=== PATIENT | male | born 1940 | race American Indian/Alaskan Native ===

== ENCOUNTER 2018-08-06 11:37 | Day surgery (SDC) | payer MEDICARE, OTHER ==
[2018-08-06] MEDS ORDERED: NACL 0.9% 1000 ML 1,000 ML ONE (13:10)
[2018-08-06 13:11] LABS: INR 1.17 (0.87-1.13)
[2018-08-06] MEDS ORDERED: ANCEF/STERILE WATER 2 GM/20 ML 2 GM/20 ML SYRINGE IV ONE (13:11)
[2018-08-06 13:12] LABS: Partial Thromboplastin Time 34.8 Sec. (24.2-36.6)
[2018-08-06] MEDS ORDERED: XYLOCAINE 2% UROJET ONE (13:16)
[2018-08-06] MEDS ORDERED: AMIDATE IV ONE (13:27)
[2018-08-06] MEDS ORDERED: ZOFRAN ONE (13:27)
[2018-08-06] MEDS ORDERED: DIPRIVAN 10 MG/ML IV ONE (13:28)
[2018-08-06] MEDS ORDERED: VERSED ONE (13:33)
[2018-08-06] MEDS ORDERED: WATER FOR IRRIG STERILE IR ONE (13:50)
--- NOTE | 2018-08-06 13:51 | Post Operative Note ---
Date of procedure: 08/06/18 Pre-op diagnosis: hematuria Post-op diagnosis: same Findings: large trilobar hypertrophy Procedure: cysto Anesthesia: GETA Surgeon: MERCY BELL Estimated blood loss: minimal Pathology: none Condition: stable Disposition: PACU
--- NOTE | 2018-08-06 13:55 | Discharge Summary ---
Short Stay Discharge Plan Activity: other (no straining ) Weight Bearing Status: Partial Weight Bearing Diet: low fat, low cholesterol, low salt Follow up with: ED PARSONS MD [Primary Care Provider] - 7 Days
[2018-08-06] MEDS ORDERED: NACL 0.9% 1000 ML 1,000 ML IV SCH (14:00)
[2018-08-06] MEDS ORDERED: ANCEF/STERILE WATER 2 GM/20 ML 2 GM/20 ML SYRINGE IV NR (14:00)
--- NOTE | 2018-08-06 14:31 | Consultation ---
History of Present Illness Consult date: 08/06/18 Requesting physician: MERCY BELL Consult reason: tachycardia History of present illness: The pt is a 77 YO male with a past medical history of restrictive cardiomyopathy, HF, cardiac amyloidosis, NSVT, AICD in situ, paroxysmal AFib/AFlutter, anticoagulated with Eliquis, severe TR, chronic RV heart failure, pulmonary HTN, DM. He is followed by [facility], Dr. Timmons. He presented today for scheduled elective cystoscopy and during the case, was noted to have a few bouts of tachycardia and thus case was aborted and cardiology consultation has been requested. Per anesthesia, his tachycardia appeared to be sinus tachycardia which lasted for approx 1 minute each bout. On evaluation, pt in NSR with no current cardiac complaints. Echo done 09/2017 showed normal LV size, mod LVH, EF 50-55%, grade 3 diastolic dysfunction c/w restrictive physiology, mod reduced RV systolic function, RA severely dilated, severe TR, RVSP 45-50, myocardial appearance suggestive of infiltrative CMP, pt with known h/o cardiac amyloid. LHC done 06/2011 showed normal coronaries. Past History Past Medical History: other (as per HPI) Medications and Allergies Allergies Allergy/AdvReac Type Severity Reaction Status Date / Time No Known Allergies Allergy Verified 07/25/18 13:46 Home Medications Medication Instructions Recorded Confirmed Last Taken Type Amiodarone HCl [Pacerone 400 MG 200 mg PO QDAY 07/25/18 08/06/18 08/05/18 09:00 History TAB] Apixaban [Eliquis] 5 mg PO BID 07/25/18 08/06/18 08/01/18 History Bimatoprost [Lumigan] 1 drop OP DAILY 07/25/18 08/06/18 08/05/18 18:00 History Brimonidine Tartrate/Timolol 1 drop OP DAILY 07/25/18 08/06/18 08/06/18 07:00 History [Combigan 0.2%-0.5% Eye Drops] Calcitriol [Rocaltrol] 0.25 mcg PO QDAY 07/25/18 08/06/18 08/05/18 18:00 History Ergocalciferol [Vitamin D2] 1 cap PO QWEEK 07/25/18 08/06/18 08/02/18 09:00 History Potassium Chloride [Klor-Con M20] 20 meq PO DAILY 07/25/18 08/06/18 08/05/18 09:00 History oxyCODONE /ACETAMINOPHEN [Percocet 1 tab PO Q6HR PRN 07/25/18 08/06/18 05/23/18 09:00 History 5/325] Active Meds: Active Medications Cefazolin Sodium (Ancef/Sterile Water 2 Gm/20 Ml) 2 gm in 20 mls @ 80 mls/hr IV PREOP NR; Protocol Stop: 08/06/18 20:00 Sodium Chloride (Nacl 0.9% 1000 Ml) 1,000 mls @ 42 mls/hr IV DIRECT ASIM Last Admin: 08/06/18 13:15 Dose: 42 mls/hr Documented by: Review of Systems All systems: negative (no current complaints) Physical Examination General appearance: no acute distress HEENT: Positive: PERRL, Normocephaly, Mucus Membranes Moist Neck: Positive: neck supple, trachea midline Cardiac: Positive: Reg Rate and Rhythm, S1/S2 Lungs: Positive: Decreased Breath Sounds Neuro: Positive: Grossly Intact Abdomen: Positive: Soft. Negative: Tender Skin: Negative: Rash, Wound Musculoskeletal: No Pain Extremities: Absent: edema Results Coagulation 08/06/18 Range/Units 12:50 PT 15.7 H (12.2-14.9) Sec. INR 1.17 H (0.87-1.13) APTT 34.8 (24.2-36.6) Sec. - Imaging and Cardiology Echo: report reviewed ( 09/2017 showed normal LV size, mod LVH, EF 50-55%, grade 3 diastolic dysfunction c/w restrictive physiology, mod reduced RV systolic function, RA severely dilated, severe TR, RVSP 45-50, myocardial appearance suggestive of infiltrative CMP, pt with known h/o cardiac amyloid. ) Cardiac cath: report reviewed (06/2011 showed normal coronaries. ) EKG: report reviewed, image reviewed EKG interpretations - Telemetry EKG Rhythm: Sinus Rhythm - EKG Sinus rhythms and dysrhythmias: sinus rhythm Assessment and Plan Pt presented today for scheduled elective cystoscopy and during the case, was noted to have a few bouts of tachycardia and thus case was aborted and c ardiology consultation has been requested. Per anesthesia, his tachycardia appeared to be sinus tachycardia which lasted for approx 1 minute each bout. On evaluation, pt in NSR with no current cardiac complaints. ECG shows SR with ectopic atrial rhythm. Currently stable cardiac status. Pt may discharge home from cardiology standpoint on home cardiac regimen. Recommend pt follow up with his primary research agricultural engineer, Dr. Timmons, within 1-2 weeks. The patient has been seen in conjunction with Dr. Caruso who agrees with the assessment and plan of care. - Patient Problems (1) Tachycardia Current Visit: Yes Status: Resolved (2) Cardiac amyloidosis Current Visit: Yes Status: Chronic (3) Restrictive cardiomyopathy Current Visit: Yes Status: Chronic (4) NSVT (nonsustained ventricular tachycardia) Current Visit: Yes Status: Chronic (5) Automatic implantable cardioverter-defibrillator in situ Current Visit: Yes Status: Chronic (6) Paroxysmal atrial fibrillation Current Visit: Yes Status: Chronic (7) Paroxysmal atrial flutter Current Visit: Yes Status: Chronic (8) Severe tricuspid regurgitation Current Visit: Yes Status: Chronic (9) Pulmonary HTN Current Visit: Yes Status: Chronic (10) Diabetes Current Visit: Yes Status: Chronic
--- NOTE | 2018-08-06 14:50 | XRay Report ---
AP ABDOMEN: HISTORY: Hematuria. The abdominal gas pattern is unremarkable. No masses or organomegaly is identified and there is no gross evidence of free air or fluid. No significant soft tissue calcifications are noted. IMPRESSION: Unremarkable abdomen.
--- NOTE | 2018-08-06 16:35 | Operative Report ---
PREOPERATIVE DIAGNOSIS: Hematuria. POSTOPERATIVE DIAGNOSIS: Trilobar hypertrophy with large middle lobe, 1-2+ trabeculated bladder. PROCEDURE: Cystoscopy. The rest of the procedure was terminated because of tachycardia. SURGEON: Yao Moore MD ANESTHESIA: MAC. FINDINGS: This is a gentleman with severe heart issues. We had clearance from the podiatrist orthopedic and could not have general, now presents for cystoscopy for hematuria. DESCRIPTION OF PROCEDURE: The patient was brought to the operating room and placed on the operating table. Following induction of anesthesia, placed in lithotomy position, prepped and draped in usual sterile fashion. He had some mild sedation. We used local gel. Cystoscopy showed a normal urethra up until the prostatic urethra. There were no irregularities. It looked as if there was previous procedure there and nodularity with a large middle lobe. We saw the trigone. We were going to do a retrograde, but we had to abandon it because he was tachycardic, so we took the scope out. We did not see any tumors. There was no active bleeding. A 22 Coude was placed, draining clear. The patient tolerated the procedure well. The plan will be per Cardiology. He may need a TURP if he continues to bleed, but he cannot have general anesthesia. He is too sick, so we will manage him with a catheter at this time. JOB# [id number] BEENA/ARUNA
--- NOTE | 2018-08-06 16:37 | Anesthesia Consultation ---
Anesthesia Consult and Med Hx - Airway Anesthetic Teeth Evaluation: Dentures ROM Head & Neck: Adequate Mental/Hyoid Distance: Adequate Mallampati Class: Class II Intubation Access Assessment: Good - Pulmonary Exam CTA: Yes - Cardiac Exam Cardiac Exam: RRR - Pre-Operative Health Status ASA Pre-Surgery Classification: ASA4 Proposed Anesthetic Plan: MAC (Cardiac eval on chart , pat) - Pulmonary Hx Smoking: Yes (STOPPED X 15 YRS) Hx Sleep Apnea: No (VLADIMIR PRE SCREEN LOW RISK.) - Cardiovascular System Hx Hypertension: No Hx Angina: No Hx Internal Defibrillator: Yes Hx Peripheral Vascular Disease: Yes (UNSURE-C/O LEG PAIN AND SWELLING) - Other Systems Hx Cancer: No - Additional Comments Anesthesia Medical History Comments: Patient has extensive cardiac hx- AICD, CHF, Aflutter D/W Surgeon and called and spoke to patients fisher trammel net - he is high risk but should be OK for MAC, explained risk to the patient and he agreed to sign consent and understands the risk.
--- NOTE | 2018-08-06 16:38 | Anesthesia Day of Surgery ---
Anesthesia Day of Surgery - Day of Surgery Patient Examined: Yes Patient H&P Reviewed: Yes Patient is NPO: Yes
--- NOTE | 2018-08-06 16:41 | Post Anesthesia Evaluation ---
- Post Anesthesia Evaluation Patient Participated: Yes Airway Patent: Yes Stable Respiratory Function: Yes Nausea/Vomiting: No Temp > 96.8F: Yes Pain Manageable: Yes Adequeate Hydration: Yes Anesthesia Complications: No Block Receding Appropriately: Not Applicable Patient on Ventilator: No Other Comments: Patient seen by cardiology for intraoperative tachycardia, he is stable and will follow with his regular automatic mold sander and can be discharged home
[2018-08-06 18:25] VITALS: BP 142/95
== END 2018-08-06 11:38 | disposition home or self-care (01) ==
LOC: OR 11:37
PROVIDERS: ATTEND Urology
DX: N32.89 Other specified disorders of bladder (principal); I50.9 Heart failure, unspecified; E85.4 Organ-limited amyloidosis; I48.92 Unspecified atrial flutter; E11.51 Type 2 diabetes mellitus with diabetic peripheral angiopathy without gangrene; E11.39 Type 2 diabetes mellitus with other diabetic ophthalmic complication; Z90.49 Acquired absence of other specified parts of digestive tract; Z79.899 Other long term (current) drug therapy; Z95.810 Presence of automatic (implantable) cardiac defibrillator; Z98.49 Cataract extraction status, unspecified eye; Z87.891 Personal history of nicotine dependence; Z86.2 Personal history of diseases of the blood and blood-forming organs and certain disorders involving the immune mechanism
CPT/HCPCS: 36415; 52005; 74018; 85610; 85730; 93005; 93010; A4217; J0690; J2250; J2405; J2704; J7030; Q9967